=== PATIENT | male | born 1985 | race Two or more races ===

== ENCOUNTER 2017-12-23 14:31 | Inpatient (IN) | payer MEDICAID ==
[~2017-12-23] VITALS: Ht 170.2 cm; Wt 90.7 kg
[2017-12-23] VITALS (12 sets, daily range): BP systolic 109–144; BP diastolic 58–74
[~2017-12-23 14:31] MED LIST: NS Irrig 1000ml ONE; Sodium Chloride 10ml vial INJ ONE; Sterile Water Irrig 1000ml IRRIG ONE
[2017-12-23] MEDS ORDERED: MULTIVITAMINS1 EAC2 ORAL (14:42)
--- NOTE | 2017-12-23 14:58 | Emergency Room Report ---
History of Present Illness General Chief Complaint: Abdominal Pain Source: Patient Present Illness HPI 32-year-old male with no sig pmhx p/w abdominal pain 1 day. Patient states pain started gradually, localized to right lower abdomen, non radiating, burning/sharp in nature, intermittent. No relieving or exacerbating factors. Severity is 5 out of 10. Denies nvd. Last bowel movement was this morning and was normal. No black or bloody stools. Denies fever, chills. No hx of abdominal surgeries. No hx of endoscopies/colonoscopies. Patient states that he had this pain once before, one year ago, went to his doctor in the clinic and was told that it was constipation. Denies any recent workup Allergies: Coded Allergies: No Known Allergies (Unverified , 12/23/17) Patient History Past Medical History: see triage record Past Surgical History: none Pertinent Family History: none Reviewed Nursing Documentation: PMH: Agreed; PSxH: Agreed Nursing Documentation-PMH Past Medical History: No Stated History Review of Systems All Other Systems: negative except mentioned in HPI Physical Exam Vital Signs Date Time Temp Pulse Resp B/P (MAP) Pulse Ox O2 Delivery O2 Flow Rate FiO2 12/23/17 14:34 98.1 91 18 144/74 98 Room Air 98.1 Sp02 EP Interpretation: reviewed, normal General Appearance: mild distress Head: normocephalic, atraumatic Eyes: bilateral eye normal inspection, bilateral eye PERRL, bilateral eye EOMI ENT: normal ENT inspection, normal pharynx, normal voice, moist mucus membranes Neck: normal inspection, full range of motion, supple Respiratory: normal inspection, lungs clear, normal breath sounds, no respiratory distress, no retraction, no wheezing, speaking full sentences, chest symmetrical Cardiovascular #1: normal inspection, regular rate, rhythm, no edema, normal capillary refill Cardiovascular #2: 2+ radial (R), 2+ radial (L) Gastrointestinal: other - Right lower quadrant tenderness, without guarding or rigidity, no CVA tenderness bilaterally, normal bowel sounds nondistended Genitourinary: no CVA tenderness Musculoskeletal: normal inspection, back normal, normal range of motion, non- tender Neurologic: normal inspection, alert, oriented x3, responsive, motor strength/ tone normal, sensory intact, normal gait, speech normal Psychiatric: normal inspection, judgement/insight normal, memory normal Skin: normal inspection, normal color, no rash, warm/dry, well hydrated, normal turgor Medical Decision Making Diagnostic Impression: Primary Impression: Acute appendicitis Qualified Codes: K35.3 - Acute appendicitis with localized peritonitis ER Course 32-year-old male with abdominal pain Differential Diagnosis: Gastritis, gastroenteritis, appendicitis, diverticulitis,UTI/pyelo Plan: Basic labs, ua CT abdopelvis ER course: pt with acute appenciditis on CT Dr Mathews made aware Disposition: Patient is to be admitted to med surg via OR DW Dr Mathews and Dr Cleary Please note that this Emergency Department Report was dictated using PureHistoryspeeder machine operator technology software, occasionally this can lead to erroneous entry secondary to interpretation by the dictation equipment Laboratory Tests Test 12/23/17 15:00 White Blood Count 16.1 K/UL (4.8-10.8) H Red Blood Count 5.04 M/UL (4.70-6.10) Hemoglobin 16.0 G/DL (14.2-18.0) Hematocrit 45.4 % (42.0-52.0) Mean Corpuscular Volume 90 FL (80-99) Mean Corpuscular Hemoglobin 31.7 PG (27.0-31.0) H Mean Corpuscular Hemoglobin Concent 35.2 G/DL (32.0-36.0) Red Cell Distribution Width 10.9 % (11.6-14.8) L Platelet Count 227 K/UL (150-450) Mean Platelet Volume 6.5 FL (6.5-10.1) Neutrophils (%) (Auto) 85.1 % (45.0-75.0) H Lymphocytes (%) (Auto) 9.0 % (20.0-45.0) L Monocytes (%) (Auto) 5.2 % (1.0-10.0) Eosinophils (%) (Auto) 0.0 % (0.0-3.0) Basophils (%) (Auto) 0.7 % (0.0-2.0) Urine Color Yellow Urine Appearance Clear Urine pH 8 (4.5-8.0) Urine Specific [place] 1.015 (1.005-1.035) Urine Protein Negative (NEGATIVE) Urine Glucose (UA) Negative (NEGATIVE) Urine Ketones Negative (NEGATIVE) Urine Occult Blood Negative (NEGATIVE) Urine Nitrite Negative (NEGATIVE) Urine Bilirubin Negative (NEGATIVE) Urine Urobilinogen Normal MG/DL (0.0-1.0) Urine Leukocyte Esterase Negative (NEGATIVE) Sodium Level 138 MMOL/L (136-145) Potassium Level 3.6 MMOL/L (3.5-5.1) Chloride Level 103 MMOL/L (98-107) Carbon Dioxide Level 27 MMOL/L (21-32) Anion Gap 8 mmol/L (5-15) Blood Urea Nitrogen 14 mg/dL (7-18) Creatinine 0.9 MG/DL (0.55-1.30) Estimate Glomerular Filtration Rate > 60 mL/min (>60) Glucose Level 100 MG/DL (74-106) Calcium Level 9.1 MG/DL (8.5-10.1) Total Bilirubin 2.5 MG/DL (0.2-1.0) H Direct Bilirubin 0.3 MG/DL (0.0-0.3) Aspartate Amino Transferase (AST) 37 U/L (15-37) Alanine Aminotransferase (ALT) 73 U/L (12-78) Alkaline Phosphatase 89 U/L (46-116) Total Protein 8.5 G/DL (6.4-8.2) H Albumin 4.4 G/DL (3.4-5.0) Globulin 4.1 g/dL Albumin/Globulin Ratio 1.1 (1.0-2.7) Lipase 69 U/L (73-393) L Last Vital Signs Date Time Temp Pulse Resp B/P (MAP) Pulse Ox O2 Delivery O2 Flow Rate FiO2 12/23/17 14:34 98.1 91 18 144/74 98 Room Air 98.1 Disposition: ADMITTED INPATIENT Condition: Serious Patient Instructions: Abdominal Pain, Adult Salo Maradiaga M.D. December 23, 2017 14:58
[2017-12-23] MEDS ORDERED: Isovue-300 100ml vial INJ PRN (15:00)
[2017-12-23 15:15] LABS: APPEARANCE,URINE CLEAR; BILIRUBIN, URINE NEGATIVE (NEGATIVE); GLUCOSE, URINE (UA) NEGATIVE (NEGATIVE); KETONES,URINE NEGATIVE (NEGATIVE); LEUKOCYTE ESTERASE ,URINE NEGATIVE (NEGATIVE); NITRITE,URINE NEGATIVE (NEGATIVE); PH,URINE 8 (4.5-8.0); PROTEIN,URINE NEGATIVE (NEGATIVE); UROBILINOGEN,URINE NORMAL MG/DL (0.0-1.0)
[2017-12-23 15:16] LABS: HEMATOCRIT 45.4 % (42.0-52.0); MEAN CORPUSCULAR VOLUME 90 FL (80-99); PLATELET COUNT 227 K/UL (150-450); RED BLOOD COUNT 5.04 M/UL (4.70-6.10); RED CELL DISTRIBUTION WIDTH 10.9 % (11.6-14.8); WHITE BLOOD COUNT 16.1 K/UL (4.8-10.8)
[2017-12-23 15:18] LABS: BASOPHILS % (AUTO) 0.7 % (0.0-2.0); COLOR,URINE YELLOW; MONOCYTES % (AUTO) 5.2 % (1.0-10.0); NEUTROPHILS % (AUTO) 85.1 % (45.0-75.0)
[2017-12-23 15:45] LABS: ANION GAP 8 mmol/L (5-15); BLOOD UREA NITROGEN 14 mg/dL (7-18); CALCIUM 9.1 MG/DL (8.5-10.1); CARBON DIOXIDE 27 MMOL/L (21-32); CHLORIDE 103 MMOL/L (98-107); CREATININE 0.9 MG/DL (0.55-1.30); POTASSIUM 3.6 MMOL/L (3.5-5.1); SODIUM 138 MMOL/L (136-145)
[2017-12-23 15:55] LABS: ALANINE AMINOTRANSFERASE 73 U/L (12-78); ALBUMIN 4.4 G/DL (3.4-5.0); ALBUMIN/GLOBULIN RATIO 1.1 (1.0-2.7); ALKALINE PHOSPHATASE 89 U/L (46-116); ASPARTATE AMINO TRANSFERASE 37 U/L (15-37); BILIRUBIN,TOTAL 2.5 MG/DL (0.2-1.0)
[2017-12-23 16:04] LABS: BILIRUBIN,DIRECT 0.3 MG/DL (0.0-0.3)
--- NOTE | 2017-12-23 16:55 | Diagnostic Imaging Report ---
Indication: Abdominal pain Technique: Continuous helical transaxial imaging of the abdomen and pelvis was obtained from the lung bases to the pubic symphysis during intravenous contrast administration. Coronal 2-D reformats were also obtained. Study obtained in a Siemens sensation [address] Automatic Exposure Control was utilized. Total Dose length Product (DLP): 825.[address] Dose Index Volume (CTDIvol): 14.36 mGy Comparison: None Findings: There is dependent mild posterior basilar atelectasis. The liver is hypodense consistent with fatty infiltration. Gallbladder is unremarkable. There is breathing motion limiting evaluation. Kidneys are unremarkable. Small nodes are seen in the mesentery nonspecific. The appendix is prominent having a wall thickness of between 9 and 10 mm. The appendix is ill-defined and the findings consistent with acute appendicitis. There is no abscess. The bladder is moderately dilated. There is diverticula noted in the colon without evidence of diverticulitis. There is no free fluid free air or evidence of bowel obstruction. IMPRESSION: Acute appendicitis Other incidental findings as above The CT scanner at [facility] is accredited by the [employer] and the scans are performed using dose optimization techniques as appropriate to a performed exam including Automatic Exposure control.
[2017-12-23] MEDS ORDERED: Morphine Sulfate 4mg/ml Inj IVP ONE (17:15)
--- NOTE | 2017-12-23 18:22 | Consultation ---
History of Present Illness General Date patient seen: December 23, 2017 Chief Complaint: Abdominal Pain Reason for Consultation: acute appendicitis Present Illness HPI 32M RLQ abdominal pain x 1 days. no nausea, no emesis, last BM this AM normal. not hungry. pain sharp cramping RLQ tenderness that is constant. Came to ED for evaluation and had CT performed which identified acute appendicitis. leukocytosis 16k. tender in RLQ. no radiation. no prior episodes. no prior history. Allergies: Coded Allergies: No Known Allergies (Unverified , 12/23/17) Medication History Scheduled Multivitamins* (Multivitamins*), 1 TAB ORAL DAILY, (Reported) Patient History History Provided By: Patient, Medical Record, PMD Healthcare decision maker Resuscitation status Advanced Directive on File Past Medical/Surgical History Past Medical/Surgical History: (1) Acute appendicitis (2) Abdominal pain Review of Systems All Other Systems: negative except mentioned in HPI Physical Exam General Appearance: no apparent distress, alert Lines, tubes and drains: peripheral HEENT: normocephalic, mucous membranes moist Neck: non-tender, normal alignment Respiratory/Chest: lungs clear, normal breath sounds, no respiratory distress, no accessory muscle use Cardiovascular/Chest: normal peripheral pulses, normal rate Abdomen: normal bowel sounds, soft, no organomegaly, no mass, guarding, rebound , tender, other - +McBurney's tenderness with focal RLQ tenderness, rebound and volunatry guarding Extremities: normal range of motion, non-tender Skin Exam: normal pigmentation, warm/dry Neurologic: alert, oriented x 3, responsive Last 24 Hour Vital Signs Date Time Temp Pulse Resp B/P (MAP) Pulse Ox O2 Delivery O2 Flow Rate FiO2 12/23/17 17:40 77 20 116/64 97 Room Air 12/23/17 17:19 98.1 12/23/17 14:40 98.1 18 144/74 98 Room Air 98.1 12/23/17 14:34 98.1 91 18 144/74 98 Room Air 98.1 Laboratory Tests Test 12/23/17 15:00 White Blood Count 16.1 K/UL (4.8-10.8) H Red Blood Count 5.04 M/UL (4.70-6.10) Hemoglobin 16.0 G/DL (14.2-18.0) Hematocrit 45.4 % (42.0-52.0) Mean Corpuscular Volume 90 FL (80-99) Mean Corpuscular Hemoglobin 31.7 PG (27.0-31.0) H Mean Corpuscular Hemoglobin Concent 35.2 G/DL (32.0-36.0) Red Cell Distribution Width 10.9 % (11.6-14.8) L Platelet Count 227 K/UL (150-450) Mean Platelet Volume 6.5 FL (6.5-10.1) Neutrophils (%) (Auto) 85.1 % (45.0-75.0) H Lymphocytes (%) (Auto) 9.0 % (20.0-45.0) L Monocytes (%) (Auto) 5.2 % (1.0-10.0) Eosinophils (%) (Auto) 0.0 % (0.0-3.0) Basophils (%) (Auto) 0.7 % (0.0-2.0) Urine Color Yellow Urine Appearance Clear Urine pH 8 (4.5-8.0) Urine Specific [place] 1.015 (1.005-1.035) Urine Protein Negative (NEGATIVE) Urine Glucose (UA) Negative (NEGATIVE) Urine Ketones Negative (NEGATIVE) Urine Occult Blood Negative (NEGATIVE) Urine Nitrite Negative (NEGATIVE) Urine Bilirubin Negative (NEGATIVE) Urine Urobilinogen Normal MG/DL (0.0-1.0) Urine Leukocyte Esterase Negative (NEGATIVE) Sodium Level 138 MMOL/L (136-145) Potassium Level 3.6 MMOL/L (3.5-5.1) Chloride Level 103 MMOL/L (98-107) Carbon Dioxide Level 27 MMOL/L (21-32) Anion Gap 8 mmol/L (5-15) Blood Urea Nitrogen 14 mg/dL (7-18) Creatinine 0.9 MG/DL (0.55-1.30) Estimat Glomerular Filtration Rate > 60 mL/min (>60) Glucose Level 100 MG/DL (74-106) Calcium Level 9.1 MG/DL (8.5-10.1) Total Bilirubin 2.5 MG/DL (0.2-1.0) H Direct Bilirubin 0.3 MG/DL (0.0-0.3) Aspartate Amino Transf (AST/SGOT) 37 U/L (15-37) Alanine Aminotransferase (ALT/SGPT) 73 U/L (12-78) Alkaline Phosphatase 89 U/L (46-116) Total Protein 8.5 G/DL (6.4-8.2) H Albumin 4.4 G/DL (3.4-5.0) Globulin 4.1 g/dL Albumin/Globulin Ratio 1.1 (1.0-2.7) Lipase 69 U/L (73-393) L Height (Feet): 5 Height (Inches): 8.00 Weight (Pounds): 215 Medications Current Medications Medications (Trade) Dose Ordered Sig/Tino Route PRN Reason Start Time Stop Time Status Last Admin Dose Admin Iopamidol (Isovue-300 100ml) 100 ml NOW PRN INJ Radiology Procedure 12/23/17 15:00 Assessment/Plan Problem List: (1) Acute appendicitis Assessment & Plan: 32M acute appendicitis. afebrile, HD stable, leukocytosis 16k, CT consistent with acute appy, focal RLQ tenderness on exam to OR for lap vs open appy NPO IV fluids IV Abx consent ICD Codes: K35.80 - Unspecified acute appendicitis SNOMED: [id number] Qualifiers: Qualified Codes: K35.3 - Acute appendicitis with localized peritonitis Status: stable Andres Mathews December 23, 2017 18:22
--- NOTE | 2017-12-23 18:22 | Pre-Procedure Note/Attestation ---
Pre-Procedure Note/Attestation Complete Prior to Procedure Planned Procedure: not applicable Procedure Narrative: laparoscopic appendectomy Indications for Procedure Pre-Operative Diagnosis: acute appendicitis Attestation I attest that I discussed the nature of the procedure; its benefits; risks and complications; and alternatives (and the risks and benefits of such alternatives ), prior to the procedure, with the patient (or the patient's legal payroll representative). I attest that, if there was a reasonable possibility of needing a blood transfusion, the patient (or the patient's legal payroll representative) was given the [facility] standardized written summary, pursuant to the Kenneth Winsted Blood Safety Act ([place] Health and Safety Code # 1645, as amended). I attest that I re-evaluated the patient just prior to the surgery and that there has been no change in the patient's H&P, except as documented below: Andres Mathews December 23, 2017 18:22
[2017-12-23] MEDS ORDERED: Piperacillin/Tazobactam 3.375 GM in NS 110 ML IVPB ONE (19:00)
[2017-12-23] MEDS ORDERED: fentaNYL 100 mcg/2 mL IV ONE ×2 (19:01→20:15)
[2017-12-23] MEDS ORDERED: Propofol 200mg/20ml IV ONE (19:03)
[2017-12-23] MEDS ORDERED: Lidocaine 1% MPF 10mg/ml 5ml ONE (19:03)
[2017-12-23] MEDS ORDERED: Dexamethasone 4mg/ml vial ONE (19:03)
[2017-12-23] MEDS ORDERED: Sodium Chloride 10ml vial INJ ONE (19:03)
--- NOTE | 2017-12-23 19:22 | Anethesia Preoperative Eval ---
Anesthesia Pre-op PMH/ROS General Date of Evaluation: December 23, 2017 Time of Evaluation: 19:21 Anesthesiologist: Mckinley ASA Score: ASA 2 - Emergency Mallampati Score Class I : Soft palate, uvula, fauces, pillars visible Class II: Soft palate, uvula, fauces visible Class III: Soft palate, base of uvula visible Class IV: Only hard plate visible Mallampati Classification: Class II Surgeon: Reid Diagnosis: Acute Appendicitis Surgical Procedure: Laparoscopic Appendectomy Anesthesia History: none Family History: no anesthesia problems Allergies: Coded Allergies: No Known Allergies (Unverified , 12/23/17) Medications: see eMAR Past Medical History Other: obesity - BMI 33 Anesthesia Pre-op Phys. Exam Physician Exam Last Vital Signs Date Time Temp Pulse Resp B/P (MAP) Pulse Ox O2 Delivery O2 Flow Rate FiO2 12/23/17 19:03 98.1 77 20 116/64 97 Room Air 208.6 Constitutional: NAD Neurologic: CN 2-12 intact Cardiovascular: RRR Respiratory: CTA Gastrointestinal: S/NT/ND Airway Exam Mallampati Score: Class II MO: full ROM: full Teeth: intact Anesthesia Pre-op A/P Labs Hematology Test 12/23/17 15:00 White Blood Count 16.1 K/UL (4.8-10.8) H Red Blood Count 5.04 M/UL (4.70-6.10) Hemoglobin 16.0 G/DL (14.2-18.0) Hematocrit 45.4 % (42.0-52.0) Mean Corpuscular Volume 90 FL (80-99) Mean Corpuscular Hemoglobin 31.7 PG (27.0-31.0) H Mean Corpuscular Hemoglobin Concent 35.2 G/DL (32.0-36.0) Red Cell Distribution Width 10.9 % (11.6-14.8) L Platelet Count 227 K/UL (150-450) Mean Platelet Volume 6.5 FL (6.5-10.1) Neutrophils (%) (Auto) 85.1 % (45.0-75.0) H Lymphocytes (%) (Auto) 9.0 % (20.0-45.0) L Monocytes (%) (Auto) 5.2 % (1.0-10.0) Eosinophils (%) (Auto) 0.0 % (0.0-3.0) Basophils (%) (Auto) 0.7 % (0.0-2.0) Chemistry Test 12/23/17 15:00 Sodium Level 138 MMOL/L (136-145) Potassium Level 3.6 MMOL/L (3.5-5.1) Chloride Level 103 MMOL/L (98-107) Carbon Dioxide Level 27 MMOL/L (21-32) Anion Gap 8 mmol/L (5-15) Blood Urea Nitrogen 14 mg/dL (7-18) Creatinine 0.9 MG/DL (0.55-1.30) Estimat Glomerular Filtration Rate > 60 mL/min (>60) Glucose Level 100 MG/DL (74-106) Calcium Level 9.1 MG/DL (8.5-10.1) Total Bilirubin 2.5 MG/DL (0.2-1.0) H Direct Bilirubin 0.3 MG/DL (0.0-0.3) Aspartate Amino Transf (AST/SGOT) 37 U/L (15-37) Alanine Aminotransferase (ALT/SGPT) 73 U/L (12-78) Alkaline Phosphatase 89 U/L (46-116) Total Protein 8.5 G/DL (6.4-8.2) H Albumin 4.4 G/DL (3.4-5.0) Globulin 4.1 g/dL Albumin/Globulin Ratio 1.1 (1.0-2.7) Lipase 69 U/L (73-393) L Risk Assessment & Plan Assessment: ASA 2E Plan: GA, BIS, GlideScope Go Status Change Before Surgery: No Pre-Antibiotics Dru Gram Ancef IV Given Within 1 Hr of Incision: Yes Time Given: 19:36 Jared Sen MD December 23, 2017 19:22
--- NOTE | 2017-12-23 19:23 | Immediate Post-Op Evaluation ---
Immediate Post-Op Evalulation Immediate Post-Op Evalulation Procedure: Laparoscopic Appendectomy Date of Evaluation: December 23, 2017 Time of Evaluation: 20:45 IV Fluids: 1000 NS Blood Products: 0 Estimated Blood Loss: 20 Urinary Output: 0 Blood Pressure Systolic: 126 Blood Pressure Diastolic: 58 Pulse Rate: 68 Respiratory Rate: 16 O2 Sat by Pulse Oximetry: 92 Temperature (Fahrenheit): 97.9 Pain Score (1-10): 2 Nausea: No Vomiting: No Complications 0 Patient Status: awake, reacts, patent, none Hydration Status: adequate Dru Gram Ancef IV Given Within 1 Hr of Incision: Yes Time Given: 19:36 Jared Sen MD December 23, 2017 19:23
[2017-12-23] MEDS ORDERED: LR 1000ml ONE (19:30)
[2017-12-23] MEDS ORDERED: NS Irrig 1000ml ONE (19:30)
[2017-12-23] MEDS ORDERED: Zemuron 50mg/5ml Inj IV ONE (19:30)
[2017-12-23] MEDS ORDERED: Sterile Water Irrig 1000ml IRRIG ONE (19:30)
[2017-12-23] MEDS ORDERED: Bupivacaine 0.25% Inj 30ml INJ ONE (19:36)
[2017-12-23] MEDS ORDERED: Lidocaine 1% 10mg/ml/Epi 0.005mg/ml 30ml vial INJ ONE (19:36)
[2017-12-23] MEDS ORDERED: Bacitracin 50000 Units Vial ONE (19:36)
[2017-12-23] MEDS ORDERED: EPINEPHrine 1mg/1ml Amp ONE (19:36)
[2017-12-23] MEDS ORDERED: NeoSporin Gu Irrig 1ml Amp IRRIG ONE (19:36)
[2017-12-23] MEDS ORDERED: NS Irrig 1000ml IRRIG ONE (19:52)
[2017-12-23] MEDS ORDERED: Glycopyrrolate 0.2mg/ml 1ml Vial ONE (20:00)
[2017-12-23] MEDS ORDERED: Neostigmine 1mg/ml 10ml Inj ONE (20:00)
--- NOTE | 2017-12-23 20:34 | Brief Operative Note ---
Immediate Post Operative Note Operative Note Pre-op Diagnosis: acute appendicitis Procedure: lap appy Post-op Diagnosis: same as pre-op Surgeon: tom Anesthesiologist: ruperto Anesthesia: general Specimen: yes Complications: none Condition: stable Fluids: see records Estimated Blood Loss: minimal Drains: none Implant(s) used?: No Andres Mathews December 23, 2017 20:34
[2017-12-23] MEDS ORDERED: HYDROcodone/Acetamin 10/325 tab ORAL PRN (20:45)
[2017-12-23] MEDS ORDERED: Ketorolac 30mg Inj IV PRN (20:45)
[2017-12-23] MEDS ORDERED: Morphine Sulfate 4mg/ml Inj IVP PRN (20:45)
[2017-12-23] MEDS ORDERED: Sennosides 8.6mg ORAL PRN ×2 (20:45→21:45)
[2017-12-23] MEDS ORDERED: Milk of Magnesia 30ml Ud ORAL PRN (20:45)
[2017-12-23] MEDS ORDERED: DiphenhydrAMINE 50mg/ml Inj IVP PRN (20:45)
[2017-12-23] MEDS ORDERED: Ketorolac 30mg Inj IV ONE (21:30)
--- NOTE | 2017-12-23 22:15 | Operative Note - Dictated ---
DATE OF OPERATION: 12/23/2017 PREOPERATIVE DIAGNOSIS: Acute appendicitis. POSTOPERATIVE DIAGNOSIS: Acute nonperforated appendicitis. OPERATION PERFORMED: Laparoscopic appendectomy. ATTENDING SURGEON: Andres Mathews M.D. TRUCK BODY BUILDER: None. ANESTHESIOLOGIST: Jared Sen M.D. ANESTHESIA: General SLOPE TENDER. ESTIMATED BLOOD LOSS: Minimal. IV FLUIDS: Please see anesthesia records. COMPLICATIONS: None. WOUND CLASSIFICATION: Class 3. SPECIMENS: Appendix. DRAINS: None. COUNT: Sponge and needle count correct x2. ANTIBIOTICS: The patient was given 2 g of Ancef 1 hour prior to cut time. INDICATIONS FOR PROCEDURE: This 32-year-old male presented to emergency department complaining of worsening abdominal pain in the right lower quadrant x1 day. The patient states that the pain is a cramping sharp right lower quadrant abdominal pain and on examination was noted to have rebound and guarding with localized peritonitis. CT scan was consistent with acute appendicitis and the patient had leukocytosis of 16,000. Given above findings, appendectomy was indicated and recommended. Risks, benefits, and alternatives were discussed with the patient in detail and consent was obtained for surgery. OPERATIVE NOTE: The patient was taken to the operating room and placed on the operating table in supine position with left arm tucked. All bony prominences were well padded. Preoperative time-out was taken identifying the patient, procedure, operative staff, and surgical staff. SCDs were placed. No Bowles catheter was inserted given the patient had voided just prior to entering the operating room. The patient was on scheduled IV antibiotics prior to entering the operating room, given 2 g of Ancef IV. General anesthesia was induced and the patient was intubated. The abdomen was clipped, prepped, and draped in standard surgical fashion. An infraumbilical incision was made and carried down to the fascia, which was elevated and incised. Entry into the abdomen was obtained using the open Natalio technique. The abdomen was then insufflated to 12 to 15 mmHg. Laparoscope was inserted. The abdomen was inspected. There was some serous fluid in the right lower quadrant and pelvis. Secondary trocars were placed under direct visualization beginning with a 12 mm left lower quadrant trocar and a 5 mm suprapubic trocar. Both were inserted under direct visualization without complication. Laparoscopic graspers were then used to identify the cecum and teniae and followed the teniae down through the confluence at which point, the base of the appendix was identified. The remainder of the appendix was then noted with significant inflammation but without perforation. There was no pus or abscess noted. The small bowel was moved out away and the patient was placed in Trendelenburg position with left side down and base of the appendix was grasped where it was healthy. A Alvina was then used to make a window in the base of the appendix. A laparoscopic linear stapler was then inserted and the base of the appendix divided without complication. The mesoappendix was then divided in a similar fashion using laparoscopic linear stapler with vascular load. The appendix was then placed in an endoscopic retrieval bag and the staple lines were identified. There was mild oozing of blood around the staple line and laparoscopic clips were used to obtain hemostasis. Once this was completed, minimal irrigation of the right lower quadrant was used to evacuate the serous fluid. At this time, the remainder of the abdomen was inspected and no other abnormalities were noted. The appendix was removed and sent to pathology for evaluation. The secondary trocars were removed under direct visualization. The abdomen was allowed to desufflate and the umbilical trocar site was removed. The 12-mm Natalio umbilical trocar site and 4-mm left lower quadrant all trocar site fascia was closed using #0 Vicryl [id number] suture. The remaining skin incisions were then closed using 4-0 Monocryl subcuticular interrupted sutures. Wounds were cleansed. Steri-Strips were applied followed by dressings. The patient tolerated the procedure well, was extubated, and taken to the postanesthetic care unit in stable condition. Andres Mathews M.D. DR: Barbara JOB#: [id number] CC: ROBB
[2017-12-23] MEDS: D5 1/2NS w/KCl 20mEq 1,000 ML IV SCH (23:15)
[2017-12-24] MEDS: cefOXitin Sod 2 GM in D5W 110 ML IV SCH ×3 (01:09→13:30)
[2017-12-24 04:00] VITALS: BP 115/63
[2017-12-24 06:36] LABS: HEMATOCRIT 39.7 % (42.0-52.0); HEMOGLOBIN 15.4 G/DL (14.2-18.0); MEAN CORPUSCULAR VOLUME 91 FL (80-99); PLATELET COUNT 188 K/UL (150-450); RED BLOOD COUNT 4.35 M/UL (4.70-6.10); RED CELL DISTRIBUTION WIDTH 10.9 % (11.6-14.8); WHITE BLOOD COUNT 11.8 K/UL (4.8-10.8)
[2017-12-24 06:43] LABS: ANION GAP 10 mmol/L (5-15); BLOOD UREA NITROGEN 12 mg/dL (7-18); CALCIUM 8.4 MG/DL (8.5-10.1); CARBON DIOXIDE 25 MMOL/L (21-32); CHLORIDE 105 MMOL/L (98-107); CREATININE 0.9 MG/DL (0.55-1.30); POTASSIUM 4.2 MMOL/L (3.5-5.1); SODIUM 139 MMOL/L (136-145)
[2017-12-24] MEDS: Norco 5mg/325mg tab ORAL PRN ×2 (07:16→12:38)
--- NOTE | 2017-12-24 07:29 | General Progress Note ---
Progress Note Progress Note Surgery: no acute events. doing well. comfortable. pain minimal. no n/v/f/c. tolerating oral diet. afebrile, HD stable, labs improved. leukocytosis down. abd soft, incisional tenderness, incisions c/d/i. suprapubic dressing with mild bloody saturation. dressings changed. -diet as tolerated -activity as tolerated (no lifting >10lbs for 4 weeks) -Rx colace/norco -f/u with me in 1 week. office info given to patient -okay to d/c this afternoon from surgical standpoint. -okay to shower. Andres Mathews December 24, 2017 07:29
[2017-12-24 08:00] VITALS: BP 99/54
[2017-12-24] MEDS: D5 1/2NS w/KCl 20mEq 1,000 ML IV SCH (08:30)
[2017-12-24] MEDS ORDERED: Docusate 100mg cap ORAL SCH (09:00)
[2017-12-24] MEDS ORDERED: COLACE100 MG ORAL (10:01)
[2017-12-24] MEDS ORDERED: NORCO 5-325 TA1 EACH ORAL (10:01)
--- NOTE | 2017-12-24 10:45 | 48 Hour Post Anesthesia Eval ---
Post Anesthesia Evaluation Procedure: Laparoscopic Appendectomy Date of Evaluation: December 24, 2017 Time of Evaluation: 07:20 Blood Pressure Systolic: 115 0: 63 Pulse Rate: 82 Respiratory Rate: 18 Temperature (Fahrenheit): 98.2 O2 Sat by Pulse Oximetry: 98 Airway: patent Nausea: No Vomiting: No Pain Intensity: 0 Hydration Status: adequate Cardiopulmonary Status: at baseline Mental Status/LOC: patient returned to baseline Post-Anesthesia Complications: 0 Follow-up care needed: N/A - further care as per primary team YINA MORGAN M.D. December 24, 2017 10:45
--- NOTE | 2017-12-24 10:49 | GI Initial Consult Note ---
History of Present Illness General Date patient seen: December 24, 2017 Time patient seen: 11:29 Reason for Hospitalization: Abdominal Pain Referring physician: [place] Reason for Consultation: ABDOMINAL PAIN Present Illness HPI 32-year-old male with no sig pmhx p/w abdominal pain 1 day. Patient states pain started gradually, localized to right lower abdomen, non radiating, burning/sharp in nature, intermittent. No relieving or exacerbating factors. Severity is 5 out of 10. Patient now s/p lap appy, in post op medical surgical floor resting. Surgical sites assessed, no drainage or bleeding noted. Patient states he has pain, but is tolerable at this time. Denies any medical history. Social ETOH user. Home Meds Reported Medications Docusate Sodium* (COLACE*) 100 Mg Capsule, 100 MG ORAL TWICE A DAY, #60 CAP 12/24/17 Hydrocodone Bit/Acetaminophen 5-325* (NORCO 5-325*) 1 Each Tablet, 1 TAB ORAL Q6H PRN for For Pain, #20 TAB 0 Refills 12/24/17 Multivitamins* (MULTIVITAMINS*) 1 Each Tablet, 1 TAB ORAL DAILY, TAB 0 Refills 12/23/17 Med list reviewed/reconciled: Yes Allergies: Coded Allergies: No Known Allergies (Unverified , 12/23/17) Patient History History Provided By: Patient, Medical Record PMH Narrative Past Medical History: see triage record Past Surgical History: none Pertinent Family History: none Reviewed Nursing Documentation: PMH: Agreed; PSxH: Agreed Nursing Documentation-PMH Past Medical History: No Stated History Social History: Reports: alcohol use - social user Review of Systems All Other Systems: negative except mentioned in HPI Physical Exam Vital Signs Date Time Temp Pulse Resp B/P (MAP) Pulse Ox O2 Delivery O2 Flow Rate FiO2 12/23/17 14:34 98.1 91 18 144/74 98 Room Air 98.1 12/23/17 20:31 3.0 Sp02 EP Interpretation: reviewed, normal Labs Laboratory Tests Test 12/23/17 15:00 12/24/17 06:00 White Blood Count 16.1 K/UL (4.8-10.8) H 11.8 K/UL (4.8-10.8) H Red Blood Count 5.04 M/UL (4.70-6.10) 4.35 M/UL (4.70-6.10) L Hemoglobin 16.0 G/DL (14.2-18.0) 15.4 G/DL (14.2-18.0) Hematocrit 45.4 % (42.0-52.0) 39.7 % (42.0-52.0) L Mean Corpuscular Volume 90 FL (80-99) 91 FL (80-99) Mean Corpuscular Hemoglobin 31.7 PG (27.0-31.0) H 35.4 PG (27.0-31.0) H Mean Corpuscular Hemoglobin Concent 35.2 G/DL (32.0-36.0) 38.8 G/DL (32.0-36.0) H Red Cell Distribution Width 10.9 % (11.6-14.8) L 10.9 % (11.6-14.8) L Platelet Count 227 K/UL (150-450) 188 K/UL (150-450) Mean Platelet Volume 6.5 FL (6.5-10.1) 7.1 FL (6.5-10.1) Neutrophils (%) (Auto) 85.1 % (45.0-75.0) H % (45.0-75.0) Lymphocytes (%) (Auto) 9.0 % (20.0-45.0) L % (20.0-45.0) Monocytes (%) (Auto) 5.2 % (1.0-10.0) % (1.0-10.0) Eosinophils (%) (Auto) 0.0 % (0.0-3.0) % (0.0-3.0) Basophils (%) (Auto) 0.7 % (0.0-2.0) % (0.0-2.0) Urine Color Yellow Urine Appearance Clear Urine pH 8 (4.5-8.0) Urine Specific [place] 1.015 (1.005-1.035) Urine Protein Negative (NEGATIVE) Urine Glucose (UA) Negative (NEGATIVE) Urine Ketones Negative (NEGATIVE) Urine Occult Blood Negative (NEGATIVE) Urine Nitrite Negative (NEGATIVE) Urine Bilirubin Negative (NEGATIVE) Urine Urobilinogen Normal MG/DL (0.0-1.0) Urine Leukocyte Esterase Negative (NEGATIVE) Sodium Level 138 MMOL/L (136-145) 139 MMOL/L (136-145) Potassium Level 3.6 MMOL/L (3.5-5.1) 4.2 MMOL/L (3.5-5.1) Chloride Level 103 MMOL/L (98-107) 105 MMOL/L (98-107) Carbon Dioxide Level 27 MMOL/L (21-32) 25 MMOL/L (21-32) Anion Gap 8 mmol/L (5-15) 10 mmol/L (5-15) Blood Urea Nitrogen 14 mg/dL (7-18) 12 mg/dL (7-18) Creatinine 0.9 MG/DL (0.55-1.30) 0.9 MG/DL (0.55-1.30) Estimat Glomerular Filtration Rate > 60 mL/min (>60) > 60 mL/min (>60) Glucose Level 100 MG/DL (74-106) 152 MG/DL (74-106) H Calcium Level 9.1 MG/DL (8.5-10.1) 8.4 MG/DL (8.5-10.1) L Total Bilirubin 2.5 MG/DL (0.2-1.0) H Direct Bilirubin 0.3 MG/DL (0.0-0.3) Aspartate Amino Transf (AST/SGOT) 37 U/L (15-37) Alanine Aminotransferase (ALT/SGPT) 73 U/L (12-78) Alkaline Phosphatase 89 U/L (46-116) Total Protein 8.5 G/DL (6.4-8.2) H Albumin 4.4 G/DL (3.4-5.0) Globulin 4.1 g/dL Albumin/Globulin Ratio 1.1 (1.0-2.7) Lipase 69 U/L (73-393) L Differential Total Cells Counted 100 Neutrophils % (Manual) 87 % (45-75) H Lymphocytes % (Manual) 9 % (20-45) L Monocytes % (Manual) 2 % (1-10) Eosinophils % (Manual) 0 % (0-3) Basophils % (Manual) 0 % (0-2) Band Neutrophils 2 % (0-8) Platelet Estimate Adequate Platelet Morphology Normal Red Blood Cell Morphology Normal General Appearance: well appearing, no apparent distress, alert Head: normocephalic EENT: PERRL/EOMI, normal ENT inspection Neck: supple Respiratory: normal breath sounds, no respiratory distress Cardiovascular: normal rate Gastrointestinal: normal inspection, non tender, soft, normal bowel sounds, non -distended, other - surgical incision Rectal: deferred Genitourinary: deferred Musculoskeletal: normal inspection, back normal Neurologic: normal inspection, alert, oriented x3, responsive Psychiatric: normal inspection, judgement/insight normal, memory normal Skin: normal inspection, normal color, no rash, warm/dry, palpation normal, well hydrated Lymphatic: normal inspection, no adenopathy Current Medications Current Medications Medications (Trade) Dose Ordered Sig/Tino Route PRN Reason Start Time Stop Time Status Last Admin Dose Admin Acetaminophen (Tylenol) 650 mg Q6H PRN ORAL Mild Pain (Pain Scale 1-3) 12/23/17 20:45 01/22/18 20:44 Acetaminophen/ Hydrocodone Bitart (Rogers 10/325) 1 tab Q4H PRN ORAL Severe Pain (Pain Scale 7-10) 12/23/17 20:45 12/30/17 20:44 Acetaminophen/ Hydrocodone Bitart (Rogers 5/325) 1 tab Q4H PRN ORAL Moderate Pain (Pain Scale 4-6) 12/23/17 20:45 12/30/17 20:44 12/24/17 07:16 Al Hydroxide/Mg Hydroxide (Mylanta) 15 ml Q6H PRN ORAL DYSPEPSIA 12/23/17 20:45 01/22/18 20:44 Cefoxitin Sodium 2 gm/Dextrose 110 ml @ 220 mls/hr Q6H IV 12/24/17 01:30 12/24/17 13:59 12/24/17 07:38 Dextrose/ Electrolytes 1,000 ml @ 100 mls/hr Q10H IV 12/23/17 22:30 01/22/18 22:29 12/24/17 08:30 Diphenhydramine HCl (Benadryl) 12.5 mg Q6H PRN IVP Itching/Pruritis 12/23/17 20:45 01/22/18 20:44 Docusate Sodium (Colace) 100 mg TWICE A DAY ORAL 12/24/17 09:00 01/23/18 08:59 12/24/17 08:29 Ketorolac Tromethamine (Toradol 30mg) 15 mg Q6H PRN IV Breakthrough pain 12/23/17 20:45 12/28/17 20:44 Magnesium Hydroxide (Mom) 30 ml BIDPRN PRN ORAL Constipation 12/23/17 20:45 01/22/18 20:44 Morphine Sulfate (Morphine Sulfate) 4 mg Q4H PRN IVP Severe Pain (Pain Scale 7-10) 12/23/17 20:45 12/30/17 20:44 Ondansetron HCl (Zofran) 4 mg Q6H PRN IVP Nausea & Vomiting 12/23/17 20:45 01/22/18 20:44 Sennosides (Senokot) 1 tab BIDPRN PRN ORAL Constipation 12/23/17 21:45 01/22/18 20:44 Temazepam (Restoril) 7.5 mg HSPRN PRN ORAL Insomnia 12/23/17 20:45 12/30/17 20:44 GI: Plan Problems: (1) Acute appendicitis (2) Abdominal pain Plan s/p laparoscopic appendectomy no post operative nausea or vomiting pain at surgical site okay for DC per GI standpoint if able to tolerate diet symptomatic treatment adv diet pain mgmt zofran prn fu labs Discussed with Dr. Riley. Thank you for this patient referral, we will follow. The patient was seen and examined at bedside and all new and available data was reviewed in the patients chart. I agree with the above findings, impression and plan. (Patient seen earlier today. Signature stamp does not reflect patient encounter time.). - MD Tara Mercer Anh Aayush Sherwood December 24, 2017 10:49
[2017-12-24 12:00] VITALS: BP 107/50
[2017-12-24] MEDS ORDERED: Tubing IV Secondary IV ONE (13:59)
--- NOTE | 2017-12-24 16:23 | Cardiology Report ---
APPROVED REPORT EKG Measurement Heart [id number] ND 130P-7 [id number] Poor data quality, interpretation may be adversely affected Normal sinus rhythm Normal ECG
--- NOTE | 2017-12-24 17:45 | History and Physical Report ---
DATE OF ADMISSION: 12/23/2017 HISTORY OF PRESENT ILLNESS: The patient is admitted for acute appendicitis. The patient was having one day symptoms of fever and chills as well as right upper quadrant tenderness, was emergently taken to the OR by Dr. Mathews, and had appendectomy. The patient postoperatively felt better. Pain was down and no chills. The patient denies nausea or vomiting. Denies diarrhea. Did have abdominal pain x1 day, however, no cough, no shortness of breath and no chest pain. PAST MEDICAL HISTORY: None. PAST SURGICAL HISTORY: None. SOCIAL HISTORY: Denies history of smoking. Denies history of alcohol or illicit drugs. MEDICATIONS: Takes multivitamin. FAMILY HISTORY: Noncontributory. REVIEW OF SYSTEMS: HEENT: Denies headaches. Denies dizziness. Denies diplopia. CARDIOVASCULAR: Denies chest pain. No orthopnea. PULMONARY: Denies shortness of breath. Denies cough. GASTROINTESTINAL: Denies nausea or vomiting. Did have abdominal pain that radiated to the right upper quadrant the day before admission to the emergency room. No diarrhea. No vomiting. EXTREMITIES: Denies pain in the lower extremities. CENTRAL NERVOUS SYSTEMS: Denies change in vision or speech pattern. PHYSICAL EXAMINATION: VITAL SIGNS: Temperature 97.2 degrees, pulse 70, blood pressure 130/70. HEENT: PERRLA. NECK: Supple. No lymphadenopathy. CHEST: Clear to auscultation. GASTROINTESTINAL: Soft, nontender and nondistended. No organomegaly. ABDOMEN: Tender on the right lower quadrant at the surgical incision site, however, no signs of infection or drainage. The patient's abdomen is soft and no rebound. No organomegaly. EXTREMITIES: No edema. Reflexes on both sides. Moves all four extremities. LABORATORY AND DIAGNOSTIC DATA: Laboratory was essentially normal except mild leukocytosis. ASSESSMENT AND PLAN: Acute appendicitis, status post appendectomy. Gastrointestinal and ID and Surgeon are already consulted on the case. Antibiotics if needed per Infectious Disease. The patient will be discharged once cleared by Infectious Disease and the surgeon. The patient is doing well postop. Ion Mckeon M.D. DR: HOANG JOB#: [id number] CC:
--- NOTE | 2017-12-24 20:15 | Consultation ---
DATE OF CONSULTATION: 12/24/2017 INFECTIOUS DISEASE CONSULTATION CONSULTING PHYSICIAN: Ethan Lezama M.D. PRIMARY ATTENDING PHYSICIAN: Ion Mckeon M.D. PRIMARY SURGEON: Andres Mathews M.D. REASON FOR CONSULT: Acute appendicitis. HISTORY OF PRESENT ILLNESS: This is a 32-year-old male admitted yesterday from home complaining of abdominal pain for day. Pain was in right lower quadrant. The patient has leukocytosis of 16,000. A CT scan of the abdomen and pelvis showed acute appendicitis and the patient had laparoscopic appendectomy last night. PAST MEDICAL HISTORY: Insignificant. MEDICATIONS: Cefoxitin, Colace, Senokot, morphine, Toradol, hydrocodone, Tylenol tablets, Zofran, milk of magnesia, and temazepam. ALLERGIES: No known drug allergy. SOCIAL HISTORY: . Has 2 kids. Denies smoking. Social drinking. 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 REVIEW OF SYSTEM: He has occasional cough. Some abdominal pain. A little difficulty of passing urine. PHYSICAL EXAMINATION: VITAL SIGNS: Temperature 97.6, pulse 60, and blood pressure 107/50. GENERAL APPEARANCE: No acute distress. Well-developed. HEAD AND NECK: Emmet conjunctivae. No oral lesion. HEART: S1 and S2. Regular. LUNGS: Clear. ABDOMEN: Soft. Mildly tender. EXTREMITIES: He has no edema. LABORATORY AND DIAGNOSTIC DATA: WBC today is 11.8, hemoglobin 15.4, hematocrit 39.7, and platelets is 188,000. Sodium 139, potassium 4.2, chloride 105, bicarb 25, BUN 12, creatinine 0.9, and glucose 152. IMPRESSION: Acute appendicitis that was not perforated. The patient is status post laparoscopic appendectomy. He has colon diverticula on CT scan. RECOMMENDATIONS: Agree with discharge plan. The patient will follow up by the surgeon in one week. Suggest repeat lab tests at that time. At the end of my exam, I thank Dr. Mckeon for involving me in the care of this patient. Ethan Lezama M.D. DR: ALESSANDRA JOB#: [id number] CC: ROBB
--- NOTE | 2017-12-25 15:52 | Discharge Summary ---
Discharge Summary Hospital Course Date of Admission December 23, 2017 at 20:31 Date of Discharge December 24, 2017 at 14:00 Admitting Diagnosis acute appendicitis HPI Jagdeep Juares is a 32 year old male who was admitted on December 23, 2017 at 20: 31 for Acute Appendicitis Hospital Course [id number] Discharge Discharge Disposition Patient was discharged to Home (01) Marlyn King NP December 25, 2017 15:52
--- NOTE | 2017-12-26 04:30 | Discharge Summary 2 SIG ---
DATE OF ADMISSION: 12/23/2017 DATE OF DISCHARGE: 12/24/2017 CONSULTANTS: 1. Andres Mathews M.D. 2. Juan Riley M.D. 3. Ethan Lezama M.D. BRIEF HOSPITAL COURSE: The patient is a 32-year-old male with no past medical history, presented to ED complaining of one day abdominal pain. Pain started gradually and localized to the right lower quadrant. Pain was nonradiating and burning/sharp in nature. There were no relieving or exacerbating factors. On evaluation at ED, he was found to have leukocytosis. WBC was 16. CAT scan of the abdomen showed acute appendicitis. Surgical evaluation was then obtained and the patient underwent laparoscopic appendectomy. The patient had acute nonperforated appendicitis. He was given antibiotic. Following day, diet was advanced. He had minimal pain and was comfortable. Abdomen was soft. There was incisional tenderness. Incisions were clean, dry, and intact. Dressing was changed. He was cleared for discharge and was advised activity as tolerated with no lifting more than 10 pounds for a month. Okay to shower. He was then eventually discharged home. FINAL DIAGNOSIS: Acute nonperforated appendicitis status post laparoscopic appendectomy. DISPOSITION: The patient was discharged home. DISCHARGE MEDICATIONS: Refer to medication list. DISCHARGE INSTRUCTIONS: Follow up with Dr. Mathews in a week. Okay to shower. Activity as tolerated with no lifting more than 10 pounds for four weeks. Ion Mckeon M.D. I have been assigned to dictate discharge summary on this account and I was not involved in the patient's management. Marlyn King N.P. DR: MARISELA JOB#: [id number] CC:
== END 2017-12-24 14:00 | disposition home or self-care (01) | DRG 225 ==
LOC: EMR 15:12 → SUR 18:08 → EDBEDREQ 18:19 → 3E 20:31
PROC: 0DTJ4ZZ Resection of Appendix, Percutaneous Endoscopic Approach (ICD-10-PCS; principal; 2017-12-23 19:30)
DX: K35.80 Unspecified acute appendicitis (principal)
CPT/HCPCS: 36415; 74177; 80048; 80053; 81003; 82248; 83690; 85007; 85025; 93005; 94003; 94150; 99285; J2405; J2710

== ENCOUNTER 2019-07-26 17:54 | Emergency (ER) | payer MEDICAID ==
[~2019-07-26] VITALS: Ht 172.7 cm; Wt 96.6 kg
[~2019-07-26 17:54] MED LIST changes: +COLACE100 MG ORAL; +MULTIVITAMINS1 EAC2 ORAL; +NORCO 5-325 TA1 EACH ORAL; -NS Irrig 1000ml ONE; -Sodium Chloride 10ml vial INJ ONE; -Sterile Water Irrig 1000ml IRRIG ONE
[2019-07-26 18:17] VITALS: BP 124/78
--- NOTE | 2019-07-26 18:17 | NUR ---
ED Nurse Note: Pt walked into ER c/o abdominal pain onset two days ago. Pt states pain is 6/10 and sharp in nature. Pt alert and oriented x4, breathing is normal and unlabored, speaking in full sentences. 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 Will continue to monitor.
[2019-07-26] MEDS ORDERED: Dicyclomine HCl 10mg/5ml oral soln ORAL ONE (18:30)
[2019-07-26] MEDS ORDERED: Mylanta II UD 30ml ORAL ONE (18:30)
[2019-07-26] MEDS ORDERED: Lidocaine 2% Visc 15ml soln ORAL ONE (18:30)
--- NOTE | 2019-07-26 18:31 | Emergency Room Report ---
History of Present Illness General Chief Complaint: Abdominal Pain Source: Patient Present Illness HPI Disclaimer: Please note that this report is being documented using [employer] technology. This can lead to erroneous entry secondary to incorrect interpretation by the dictating instrument. HPI: 33-year-old male with history of GERD presents for evaluation of abdominal pain. Symptoms began yesterday. He was eating chili. He noted epigastric and periumbilical aching, nonradiating. No nausea, no vomiting, no diarrhea. He has been having a cold for several days complaining of nasal congestion, cough, diffuse body aches but denies fever. Also reports constipation for a few days. PMH: GERD PSH: Appendectomy Allergies: Denies Social Hx: Denies drug or alcohol abuse Allergies: Coded Allergies: No Known Allergies (Unverified , 12/23/17) Nursing Documentation-PMH Past Medical History: No Stated History Review of Systems All Other Systems: negative except mentioned in HPI Physical Exam Vital Signs Date Time Temp Pulse Resp B/P (MAP) Pulse Ox O2 Delivery O2 Flow Rate FiO2 07/26/19 18:03 98.1 72 17 124/78 (93) 98 Room Air General: Awake and alert, no acute distress HEENT: NC/AT. EOMI. Cardiovascular: RRR. S1 and S2 normal. No murmur appreciated Resp: Normal work of breathing. No cough, wheezing or crackles appreciated Abdomen: Abdomen is soft, nondistended. Mild tenderness in the epigastrium. No masses appreciated. Soft abdomen otherwise Skin: Intact. No abrasions, laceration or rash over the exposed skin MSK: Normal tone and bulk. Moving all extremities. No obvious deformity. Neuro: Awake and alert. Mentating appropriately. Medical Decision Making Diagnostic Impression: Primary Impression: Abdominal pain ER Course 33-year-old male with history of appendicitis and GERD presents for evaluation of epigastric and periumbilical abdominal pain. Most likely, this is gastritis or gastroenteritis secondary to her recent viral syndrome however patient could have exacerbation of his GERD, constipation, impaction, pancreatitis or cholecystitis. Will obtain an x-ray, labs and give a GI cocktail. He is well- appearing with a soft abdomen otherwise. Laboratory Tests Test 07/26/19 18:35 White Blood Count 9.8 K/UL (4.8-10.8) Red Blood Count 5.02 M/UL (4.70-6.10) Hemoglobin 16.1 G/DL (14.2-18.0) Hematocrit 43.7 % (42.0-52.0) Mean Corpuscular Volume 87 FL (80-99) Mean Corpuscular Hemoglobin 32.1 PG (27.0-31.0) H Mean Corpuscular Hemoglobin Concent 36.9 G/DL (32.0-36.0) H Red Cell Distribution Width 9.7 % (11.6-14.8) L Platelet Count 229 K/UL (150-450) Mean Platelet Volume 5.8 FL (6.5-10.1) L Neutrophils (%) (Auto) 63.9 % (45.0-75.0) Lymphocytes (%) (Auto) 29.5 % (20.0-45.0) Monocytes (%) (Auto) 5.7 % (1.0-10.0) Eosinophils (%) (Auto) 0.5 % (0.0-3.0) Basophils (%) (Auto) 0.5 % (0.0-2.0) Sodium Level 142 MMOL/L (136-145) Potassium Level 3.8 MMOL/L (3.5-5.1) Chloride Level 103 MMOL/L (98-107) Carbon Dioxide Level 28 MMOL/L (21-32) Anion Gap 11 mmol/L (5-15) Blood Urea Nitrogen 17 mg/dL (7-18) Creatinine 0.9 MG/DL (0.55-1.30) Estimate Glomerular Filtration Rate > 60 mL/min (>60) Glucose Level 94 MG/DL (74-106) Calcium Level 9.3 MG/DL (8.5-10.1) Total Bilirubin 1.1 MG/DL (0.2-1.0) H Direct Bilirubin 0.2 MG/DL (0.0-0.3) Aspartate Amino Transferase (AST) 39 U/L (15-37) H Alanine Aminotransferase (ALT) 76 U/L (12-78) Alkaline Phosphatase 85 U/L (46-116) Total Protein 8.2 G/DL (6.4-8.2) Albumin 4.2 G/DL (3.4-5.0) Globulin 4.0 g/dL Albumin/Globulin Ratio 1.0 (1.0-2.7) Lipase 100 U/L (73-393) Other X-Ray Diagnostic Results Other X-Ray Diagnostic Results : X-Ray ordered: Abdomen # of Views/Limited Vs Complete: 1 View Indication: Pain EP Interpretation: Yes Interpretation: nonspecific bowel gas, no sbo Impression: No acute disease Electronically Signed by: Electronically signed by Dr. Enrique Berry Reevaluation Time: 19:37 Last Vital Signs Date Time Temp Pulse Resp B/P (MAP) Pulse Ox O2 Delivery O2 Flow Rate FiO2 07/26/19 18:03 98.1 72 17 124/78 (93) 98 Room Air Reevaluation Impression Labs unremarkable. Abdominal x-ray does not show signs of obstruction but has a nonspecific bowel gas pattern. May be constipation, worsening GERD though the patient's belly remained soft, he is stable vital signs and had some improvement after receiving a GI cocktail. He will be discharged to follow-up as an outpatient. Discussed reasons to return to the emergency department. He understands and agrees with this treatment plan. Disposition: HOME, SELF-CARE Condition: Improved Scripts Polyethylene Glycol 3350* (MIRALAX*) 17 Gm Powd.pack 17 GM ORAL BID for 7 Days, #14 PACKET Prov: Enrique Berry MD 07/26/19 Enrique Berry MD Jul 26, 2019 18:31
[2019-07-26 18:56] LABS: BASOPHILS % (AUTO) 0.5 % (0.0-2.0); EOSINOPHILS % (AUTO) 0.5 % (0.0-3.0); HEMATOCRIT 43.7 % (42.0-52.0); HEMOGLOBIN 16.1 G/DL (14.2-18.0); LYMPHOCYTES % (AUTO) 29.5 % (20.0-45.0); MEAN CORPUSCULAR VOLUME 87 FL (80-99); MONOCYTES % (AUTO) 5.7 % (1.0-10.0); NEUTROPHILS % (AUTO) 63.9 % (45.0-75.0); PLATELET COUNT 229 K/UL (150-450); RED BLOOD COUNT 5.02 M/UL (4.70-6.10); RED CELL DISTRIBUTION WIDTH 9.7 % (11.6-14.8); WHITE BLOOD COUNT 9.8 K/UL (4.8-10.8)
--- NOTE | 2019-07-26 19:05 | NUR ---
HAND-OFF: Report given to RAMESH Sanchez and endorsed care.
[2019-07-26 19:06] VITALS: BP 120/80
--- NOTE | 2019-07-26 19:06 | NUR ---
ED Nurse Note: Recieved report from Lucille CHANDLER.
[2019-07-26 19:08] LABS: ANION GAP 11 mmol/L (5-15); BLOOD UREA NITROGEN 17 mg/dL (7-18); CALCIUM 9.3 MG/DL (8.5-10.1); CARBON DIOXIDE 28 MMOL/L (21-32); CHLORIDE 103 MMOL/L (98-107); CREATININE 0.9 MG/DL (0.55-1.30); POTASSIUM 3.8 MMOL/L (3.5-5.1); SODIUM 142 MMOL/L (136-145)
[2019-07-26 19:19] LABS: ALANINE AMINOTRANSFERASE 76 U/L (12-78); ALBUMIN 4.2 G/DL (3.4-5.0); ALKALINE PHOSPHATASE 85 U/L (46-116); ASPARTATE AMINO TRANSFERASE 39 U/L (15-37); BILIRUBIN,TOTAL 1.1 MG/DL (0.2-1.0)
[2019-07-26 19:20] LABS: BILIRUBIN,DIRECT 0.2 MG/DL (0.0-0.3)
[2019-07-26] MEDS ORDERED: MIRALAX17 G2 ORAL (19:41)
[2019-07-26 19:52] VITALS: BP 131/68
--- NOTE | 2019-07-26 19:52 | NUR ---
ED Nurse Note: Pt cleared by ERMD for discharge. DC instructions/prescription was given and explained to pt and verbalized understanding of teachings. All medical deviecs such as ID band and IV line removed. Pt is AAO x4, ambulatory and left with all personal belongings.
--- NOTE | 2019-07-27 13:50 | Diagnostic Imaging Report ---
Indication: Constipation Technique: Supine view of the abdomen Comparison: none Findings: Bowel gas pattern is unremarkable. No masses or unusual calcifications. Surgical clips are seen in the right side of the pelvis. The bones are intact Impression: Negative
== END 2019-07-26 19:50 | disposition home or self-care (01) ==
LOC: EMR 19:40
DX: R10.9 Unspecified abdominal pain (principal); K21.9 Gastro-esophageal reflux disease without esophagitis; Z90.89 Acquired absence of other organs
CPT/HCPCS: 36415; 74018; 80053; 82248; 83690; 85025; 96360; J7030; Z7502; 99284